=== PATIENT | female | born 1970 | race Caucasian/White ===

== ENCOUNTER → 2024-08-06 07:37 | Outpatient (REF) | payer OTHER, SELFPAY | LOC: HWWDC 07:37 | PROVIDERS: ATTENDING PHYSICIAN Obstetrics & Gynecology; FAMILY PHYSICIAN Internal Medicine | DX: N83.291 Other ovarian cyst, right side (principal); Z12.31 Encounter for screening mammogram for malignant neoplasm of breast | CPT/HCPCS: 76830; 76856; 77063; 77067 ==